=== PATIENT | male | born 1960 | race Caucasian/White ===

== ENCOUNTER → 2020-02-02 | Outpatient (CLI) | payer BC ==
--- NOTE | 2020-02-02 10:43 | CT ---
EXAMINATION TYPE: CT lower extremity LT wo con DATE OF EXAM: 02/02/2020 COMPARISON: None available HISTORY: 59 year-old male left tibial plateau fracture TECHNIQUE: Contiguous axial scanning of the left knee without IV contrast. Coronal and sagittal recon structions performed. 3-D reconstructions generated on a dedicated workstation. CT DLP: 237 mGycm Automated exposure control for dose reduction was used. FINDINGS: Lateral sideplate and multiple screw fixation across the patient's proximal tibial fracture. The frac ture has a vertical component involving the central aspect of the lateral compartment tibial articula r surface extending posteriorly back to the weightbearing aspect. There is diffuse irregularity of th e subchondral bone articular surface centrally within the joint space. Additional transverse fracture at the level of the tibial metaphysis shows 7 mm of anterior displacem ent. There are regions of bony bridging laterally and posteriorly. Small areas anteriorly and along t he intramedullary space as well. However, some fracture lucency is remain. Moderate joint effusion. Additional transverse fracture at the level of the fibular neck. Small bony bridging is noted along t he anterior cortex and even smaller along the posterolateral cortex. Otherwise, corticated fracture l rosalba are demonstrated. Marked disuse osteopenia and generalized edema.. IMPRESSION: 1. LATERAL SIDEPLATE AND SCREW FIXATION ACROSS THE PATIENT'S PROXIMAL TIBIAL FRACTURE. FIXATION HARDW ARE REMAINS INTACT. 2. THERE IS A TRANSVERSE METAPHYSEAL COMPONENT WITH 7 MM OF ANTERIOR DISPLACEMENT. SCATTERED AREAS OF BONY BRIDGING ARE PRESENT AND OTHER SCATTERED AREAS OF PERSISTENT FRACTURE LUCENCY/INCOMPLETE UNION. 3. FRACTURE EXTENSION INTO THE LATERAL TIBIAL PLATEAU CAUSING EXTENSIVE IRREGULARITY ALONG THE CENTRA L ARTICULAR SURFACE OF THE LATERAL COMPARTMENT. VERTICAL FRACTURE EXTENSION POSTERIORLY TO THE WEIGHT BEARING ASPECT OF THE TIBIAL PLATEAU. SOME RESIDUAL FRACTURE LUCENCIES REMAIN HERE. 4. ADDITIONAL FIBULAR NECK FRACTURE. INCOMPLETE HEALING ACROSS MOST OF THIS FRACTURE. SMALL AREAS OF BONY BRIDGING ANTERIORLY AND POSTEROLATERALLY. 5. MODERATE KNEE JOINT EFFUSION AND GENERALIZED SOFT TISSUE SWELLING. MARKED DISUSE OSTEOPENIA.
== END | disposition home or self-care (01) ==
LOC: RADCTMAIN 07:58
PROVIDERS: ATTEND Orthopaedic Surgery
DX: S82.112D Displaced fracture of left tibial spine, subsequent encounter for closed fracture with routine healing (principal); S82.832D Other fracture of upper and lower end of left fibula, subsequent encounter for closed fracture with routine healing